=== PATIENT | female | born 1990 | race African-American/Black ===

== ENCOUNTER 2022-12-10 11:19 | Day surgery (SDC) | payer OTHER ==
[2022-12-02 11:20] VITALS: BMI 22.1
[2022-12-10] MEDS ORDERED: fentaNYL PF 100 MCG/2 ML SYRINGE ONE (12:04)
[2022-12-10] MEDS ORDERED: Lidocaine 1% (PF) 30 ML VIAL ONE (12:09)
[2022-12-10] MEDS ORDERED: EPINEPHrine 1 MG/ML AMP ONE (12:09)
[2022-12-10] MEDS ORDERED: Bupivacaine 0.25% HCL 30 ML VIAL ONE (12:09)
[2022-12-10] MEDS ORDERED: Sodium Chloride 0.9% 100 ML ONE (12:37)
[2022-12-10] MEDS ORDERED: CEFAZOLIN 1 GM VIAL ONE (12:37)
[2022-12-10] MEDS ORDERED: PROPOFOL 200 MG/20 ML VIAL ONE (12:40)
[2022-12-10] MEDS ORDERED: Ondansetron PF 4 MG/2 ML Vial ONE (12:40)
[2022-12-10] MEDS ORDERED: Lidocaine 1% PF 5 ML VIAL ONE (12:40)
[2022-12-10] MEDS ORDERED: Phenylephrine 10 MG/ML VIAL ONE (12:40)
[2022-12-10] MEDS ORDERED: Ketorolac Tromethamine 30 MG/ML VIAL ONE (12:40)
[2022-12-10] MEDS ORDERED: Dexamethasone 20 MG/5 ML VIAL ONE (12:40)
[2022-12-10] MEDS ORDERED: fentaNYL 50 mcg/mL 1 mL Vial ONE (14:25)
== END 2022-12-10 17:35 | disposition home or self-care (01) ==
LOC: SDC 11:19
PROVIDERS: ATTEND Surgery Surgery of the Hand
PROC: 0LR707Z Replacement of Right Hand Tendon with Autologous Tissue Substitute, Open Approach (ICD-10-PCS; principal; 2022-12-10)
PROC: 0LN70ZZ Release Right Hand Tendon, Open Approach (ICD-10-PCS; principal; 2022-12-10)
DX: S66.320A Laceration of extensor muscle, fascia and tendon of right index finger at wrist and hand level, initial encounter (principal); W25.XXXA Contact with sharp glass, initial encounter
CPT/HCPCS: J0171; J0690; J1100; J1885; J2001; J2370; J2405; J2704; J3010; J3490; S0020